=== PATIENT | female | born 1995 | race Caucasian/White ===

== ENCOUNTER 2017-10-31 13:25 | Emergency (ER) | payer OTHER ==
[~2017-10-31] VITALS: Ht 170.2 cm; Wt 75.0 kg
[2017-10-31 13:32] VITALS: BP 130/80
== END 2017-10-31 14:33 | disposition home or self-care (01) ==
LOC: ED 14:00
DX: S33.5XXA Sprain of ligaments of lumbar spine, initial encounter (principal); M25.512 Pain in left shoulder; V23.4XXA Motorcycle driver injured in collision with car, pick-up truck or van in traffic accident, initial encounter; Y93.89 Activity, other specified; Y92.89 Other specified places as the place of occurrence of the external cause; Y99.8 Other external cause status
CPT/HCPCS: 99283